=== PATIENT | female | born 1990 | race Caucasian/White ===

== ENCOUNTER 2016-09-30 10:44 | Emergency (ER) | payer OTHER ==
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
--- NOTE | 2016-09-30 13:36 | ED ORDER SUMMARY ---
..... Patient: VLADIMIR HARDWICK OrderSheet [facility] VisitID: [id number] [place] [address] 26y, F Registration Date/Time: 09/30/2016 ORDER SHEET Weight: 81.6 kg (stated) Allergies: No Known Drug Allergy GENERAL ORDERS: Mandible Complete Urgent (12:11 09/30/2016 Solis BEAVER) (Ack 12:42 Nahtalia) (13:04 NHouse ER Tech1) Cervical Spine 2 or 3V Urgent (12:12 09/30/2016 Solis BEAVER) (Ack 12:42 Nathalia) (13:04 NHouse ER Tech1) POC - Urine hCG (12:36 09/30/2016 Nathalia per protocol) (Ack 12:42 Nathalia) (12:44 MWinterer R.N.) (Cancelled: Other12:44 NHouse ER Tech1) MEDICATION ORDERS: IV FLUIDS: ORDER SHEET NOTES: [Electronically signed by Delmer Brody R.N. (13:52 09/30/2016)] [Electronically signed by Jose Alberto Jones MD (01:49 10/08/2016)] [Electronically locked/signed by Delmer Brody R.N. (13:52 09/30/2016)]
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
--- NOTE | 2016-09-30 13:36 | ED ORDER SUMMARY ---
..... Patient: VLADIMIR HARDWICK OrderSheet [facility] VisitID: [id number] [place] [address] 26y, F Registration Date/Time: 09/30/2016 ORDER SHEET Weight: 81.6 kg (stated) Allergies: No Known Drug Allergy GENERAL ORDERS: Mandible Complete Urgent (12:11 09/30/2016 Solis BEAVER) (Ack 12:42 Nathalia) (13:04 NHouse ER Tech1) Cervical Spine 2 or 3V Urgent (12:12 09/30/2016 Solis BEAVER) (Ack 12:42 Nathalia) (13:04 NHouse ER Tech1) POC - Urine hCG (12:36 09/30/2016 Nathalia per protocol) (Ack 12:42 Nathalia) (12:44 MWinterer R.N.) (Cancelled: Other12:44 NHouse ER Tech1) MEDICATION ORDERS: IV FLUIDS: ORDER SHEET NOTES: [Electronically signed by Delmer Brody R.N. (13:52 09/30/2016)] [Electronically signed by Jose Alberto Jones MD (01:49 10/08/2016)] [Electronically locked/signed by Delmer Brody R.N. (13:52 09/30/2016)]
--- NOTE | 2016-09-30 13:43 | DIAGNOSTIC IMAGING REPORT ---
PROCEDURE: XR CERVICAL SPINE 2 OR 3 VIEW INDICATION: PAIN TECHNIQUE: Four views. COMPARISON: None. FINDINGS: Osseous structures and disc spaces are normal. No evidence of an acute process or fracture. IMPRESSION: 1. Negative cervical spine.
--- NOTE | 2016-09-30 13:46 | DIAGNOSTIC IMAGING REPORT ---
PROCEDURE: XR MANDIBLE COMPLETE INDICATION: PAIN TECHNIQUE: Five views of the mandible COMPARISON: None. FINDINGS: There is no fracture or dislocation. No bony lesions. IMPRESSION: 1. Normal
--- NOTE | 2016-10-08 01:50 | ED MED RECONCILIATION SUMMARY ---
Patient: VLADIMIR HARDWICK Medication Reconciliation Report [facility] VisitID: [id number] [place] [address] 26y, F Registration Date/Time: 09/30/2016 Weight: 81.6 kg Height/Length: 65 in. BMI: 30.0 ALLERGIES: No Known Drug Allergy The patient's Home Medications are listed below: NONE. The source(s) of the original Home Medication information: patient The following Medications were given to the patient in the Emergency Department: None. The following Medications were prescribed to the patient: Motrin (available over the counter): take according to label instructions. -- Jose Alberto Jones MD Ultram 50 mg: take 1-2 orally every 6 hours as needed for pain. Dispense fifteen (15). No refills. Substitution is permissible. -- Jose Alberto Jones MD
--- NOTE | 2016-10-08 01:50 | ED MAR SUMMARY ---
..... Medication Administration Record [facility] [address] [place], [place] [id number] Patient: VLADIMIR HARDWICK Visit ID: [id number] 26y, F Weight: 81.6 kg Height/Length: 65 in BMI: 30 ALLERGIES: No Known Drug Allergy
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
--- NOTE | 2016-10-08 01:50 | ED MAR SUMMARY ---
..... Medication Administration Record [facility] [address] [place], [place] [id number] Patient: VLADIMIR HARDWICK Visit ID: [id number] 26y, F Weight: 81.6 kg Height/Length: 65 in BMI: 30 ALLERGIES: No Known Drug Allergy
--- NOTE | 2016-10-08 01:50 | ED MED RECONCILIATION SUMMARY ---
Patient: VLADIMIR HARDWICK Medication Reconciliation Report [facility] VisitID: [id number] [place] [address] 26y, F Registration Date/Time: 09/30/2016 Weight: 81.6 kg Height/Length: 65 in. BMI: 30.0 ALLERGIES: No Known Drug Allergy The patient's Home Medications are listed below: NONE. The source(s) of the original Home Medication information: patient The following Medications were given to the patient in the Emergency Department: None. The following Medications were prescribed to the patient: Motrin (available over the counter): take according to label instructions. -- Jose Alberto Jones MD Ultram 50 mg: take 1-2 orally every 6 hours as needed for pain. Dispense fifteen (15). No refills. Substitution is permissible. -- Jose Alberto Jones MD
== END 2016-09-30 13:45 | disposition home or self-care (01) ==
LOC: ED SRH 10:44
DX: S16.1XXA Strain of muscle, fascia and tendon at neck level, initial encounter (principal); S00.83XA Contusion of other part of head, initial encounter; V53.5XXA Driver of pick-up truck or van injured in collision with car, pick-up truck or van in traffic accident, initial encounter; Y93.89 Activity, other specified; Y92.410 Unspecified street and highway as the place of occurrence of the external cause; Y99.9 Unspecified external cause status; F17.210 Nicotine dependence, cigarettes, uncomplicated
CPT/HCPCS: 93070